=== PATIENT | male | born 1960 | race Caucasian/White ===

== ENCOUNTER 2022-12-21 11:25 | Inpatient (IN) | payer MEDICARE, MEDICAID ==
[~2022-12-21] VITALS: Ht 177.8 cm; Wt 103.9 kg
[2022-12-21] MEDS ORDERED: ZOLPIDEM TARTRATE 10 MG TABLET PO PRN (13:45)
[2022-12-21] MEDS ORDERED: LORazepam 2 MG TABLET PO PRN (13:45)
[2022-12-21 20:36] LABS: COVID AG,FIA SOURCE NASAL SWAB
[2022-12-21 22:07] LABS: BASOPHILS % (AUTO) 0.2 % (0.0-2.0); EOSINOPHILS % (AUTO) 3.2 % (1.0-6.0); HEMATOCRIT 48.5 % (41-53); HEMOGLOBIN 15.7 g/dL (13.5-17.5); LYMPHOCYTES # (AUTO) 1.5 K/uL (1.0-4.8); LYMPHOCYTES % (AUTO) 24.1 % (22.0-44.0); MEAN CORPUSCULAR HEMOGLOBIN 33.5 pg (26.0-34.0); MEAN CORPUSCULAR HGB CONC 32.4 G/dL (31.0-37.0); MEAN CORPUSCULAR VOLUME 103 fL (80-100); MONOCYTES # (AUTO) 0.8 K/uL (0.1-1.0); MONOCYTES % (AUTO) 12.6 % (2.0-9.0); NEUTROPHILS # (AUTO) 3.7 K/uL (1.8-7.7); NEUTROPHILS % (AUTO) 59.9 % (40.0-70.0); PLATELET COUNT (AUTO) 201 K/uL (150-450); RED CELL DISTRIBUTION WIDTH 14.8 % (11.5-14.5)
[2022-12-22] VITALS (7 sets, daily range): BP systolic 136–166; BP diastolic 73–99; PULSE 66–77; RESP 17–20; TEMP 97–98.3; O2SAT 96–100
[2022-12-22] MEDS ORDERED: ACETAMINOPHEN 325 MG TABLET PO PRN ×3 (06:00→15:30)
[2022-12-22] MEDS ORDERED: DEXTROSE 50%-WATER 25 GM/50 ML SYRINGE IVP PRN (06:00)
[2022-12-22] MEDS ORDERED: LORazepam 2 MG TABLET PO PRN (07:00)
[2022-12-22] MEDS: INSULIN LISPRO 100 UNITS/ML SQ PRN ×3 (07:14→21:03)
[2022-12-22 07:25] LABS: GLUCOMETER DEV NAME(LOC) 3E.C
[2022-12-22] MEDS ORDERED: LORazepam 2 MG TABLET PO SCH (09:00)
[2022-12-22 11:41] LABS: GLUCOMETER DEV NAME(LOC) 3E.C
[2022-12-22] MEDS ORDERED: MAG HYDROX/AL HYDROX/SIMETH ES 30 ML SUSPENSION UDCUP PO PRN ×2 (14:00→15:30)
[2022-12-22] MEDS ORDERED: PETROLATUM,WHITE 28 GM JELLY TP PRN ×2 (14:00→15:30)
[2022-12-22] MEDS ORDERED: DOCUSATE SODIUM 100 MG CAPSULE PO PRN ×2 (14:00→15:30)
[2022-12-22] MEDS ORDERED: IBUPROFEN 400 MG TABLET PO PRN (14:00)
[2022-12-22] MEDS ORDERED: MAGNESIUM HYDROXIDE SUSPENSION 30 ML UDCUP PO PRN ×2 (14:00→15:30)
[2022-12-22] MEDS ORDERED: NICOTINE 14 MG/24 HOUR PATCH TD PRN ×2 (14:00→15:30)
[2022-12-22] MEDS ORDERED: GuaiFENesin/D-METHORPHAN [SUGAR-FREE] 200-20MG/10 ML SYRUP UDCUP PO PRN ×2 (14:00→15:30)
[2022-12-22] MEDS ORDERED: ALBUTEROL SULFATE HFA 90 MCG/PUFF 8 GM INHALER IH PRN ×2 (14:00→15:30)
[2022-12-22] MEDS ORDERED: CloNIDine HCL 0.1 MG TABLET PO PRN ×2 (14:00→15:30)
[2022-12-22] MEDS ORDERED: ONDANSETRON HCL 4 MG TABLET PO PRN ×2 (14:00→15:30)
[2022-12-22] MEDS ORDERED: LOPERAMIDE HCL 2 MG CAPSULE PO PRN ×2 (14:00→15:30)
[2022-12-22 17:01] LABS: GLUCOMETER DEV NAME(LOC) 3E.C
[2022-12-22 21:05] LABS: GLUCOMETER DEV NAME(LOC) 3E.C
[2022-12-23 06:03] VITALS: RESP 18
[2022-12-23 06:22] LABS: GLUCOMETER DEV NAME(LOC) 3E.C
[2022-12-23] MEDS: INSULIN LISPRO 100 UNITS/ML SQ PRN (06:36)
[2022-12-23 08:52] VITALS: BP 150/89; PULSE 73; RESP 18; TEMP 97.2; O2SAT 98
[2022-12-23 11:27] LABS: GLUCOMETER DEV NAME(LOC) 3E.C
[2022-12-23 12:16] VITALS: TEMP 97
[2022-12-23] MEDS: AmLODIPine BESYLATE 5 MG TABLET PO SCH (15:57)
[2022-12-23 16:37] VITALS: BP 174/86; PULSE 64; RESP 18; TEMP 97.6; O2SAT 97
[2022-12-23 21:00] VITALS: BP 157/95; PULSE 69; RESP 18; TEMP 97.3
[2022-12-24] VITALS: TEMP 97.7
[2022-12-24 04:06] VITALS: RESP 18
[2022-12-24] MEDS ORDERED: LORazepam 1 MG TABLET PO PRN (07:00)
[2022-12-24] MEDS ORDERED: LORazepam 1 MG TABLET PO SCH (09:00)
[2022-12-24] MEDS: AmLODIPine BESYLATE 5 MG TABLET PO SCH (09:23)
[2022-12-24 09:30] VITALS: BP 128/75; PULSE 68; RESP 18; TEMP 97.8; O2SAT 98
[2022-12-24 12:03] VITALS: TEMP 98
[2022-12-24 16:54] VITALS: BP 156/91; PULSE 67; RESP 18; TEMP 97.8; O2SAT 100
[2022-12-24 21:06] VITALS: BP 152/91; PULSE 65; RESP 18; TEMP 97.5; O2SAT 97
[2022-12-25 04:47] VITALS: RESP 18
[2022-12-25] MEDS ORDERED: LORazepam 1 MG TABLET PO PRN (07:00)
[2022-12-25 08:33] VITALS: BP 140/102; RESP 19; O2SAT 96
[2022-12-25 09:00] VITALS: BP 143/71; PULSE 78; RESP 18; TEMP 97.6; O2SAT 98
[2022-12-25] MEDS: AmLODIPine BESYLATE 5 MG TABLET PO SCH (09:00)
[2022-12-25 12:14] VITALS: TEMP 98
[2022-12-25] MEDS: INSULIN LISPRO 100 UNITS/ML SQ PRN (12:14)
[2022-12-25] MEDS: SERTRALINE HCL 50 MG TABLET PO SCH (14:00)
[2022-12-25 16:10] VITALS: BP 143/79; PULSE 62; RESP 18; TEMP 98; O2SAT 98
[2022-12-25 20:41] VITALS: BP 151/86; PULSE 68; RESP 18; TEMP 98.2; O2SAT 98
[2022-12-26 00:25] VITALS: RESP 18
[2022-12-26 05:26] VITALS: RESP 18
[2022-12-26 08:00] VITALS: BP 132/80; PULSE 90; RESP 19; TEMP 97.2; O2SAT 98
[2022-12-26] MEDS: AmLODIPine BESYLATE 5 MG TABLET PO SCH (09:00)
[2022-12-26] MEDS: SERTRALINE HCL 50 MG TABLET PO SCH (09:00)
[2022-12-26 12:16] VITALS: TEMP 97.8
[2022-12-26 16:48] VITALS: BP 162/76; PULSE 74; RESP 18; TEMP 97.6; O2SAT 99
[2022-12-26] MEDS: INSULIN LISPRO 100 UNITS/ML SQ PRN (18:13)
[2022-12-26 21:43] VITALS: BP 156/100; PULSE 74; RESP 16; TEMP 97.1; O2SAT 98
[2022-12-27] MEDS: SERTRALINE HCL 50 MG TABLET PO SCH (09:00)
[2022-12-27] MEDS: AmLODIPine BESYLATE 5 MG TABLET PO SCH (09:00)
[2022-12-27 09:30] VITALS: BP 131/75; PULSE 73; RESP 17; TEMP 98; O2SAT 96
[2022-12-27 18:08] VITALS: BP 145/91; PULSE 64; RESP 18; TEMP 97.6; O2SAT 95
[2022-12-27 20:03] VITALS: BP 138/78; PULSE 86; RESP 18; TEMP 97.9; O2SAT 98
[2022-12-28 04:29] VITALS: RESP 18
[2022-12-28] MEDS: AmLODIPine BESYLATE 5 MG TABLET PO SCH (09:00)
[2022-12-28] MEDS: SERTRALINE HCL 50 MG TABLET PO SCH (09:00)
[2022-12-28 11:20] VITALS: BP 129/69; PULSE 63; TEMP 97.3; O2SAT 98
[2022-12-28 13:52] VITALS: TEMP 98.1
[2022-12-28 18:56] VITALS: BP 148/80; PULSE 70; TEMP 97.6; O2SAT 98
[2022-12-28 20:36] LABS: COVID AG,FIA SOURCE NASAL SWAB
[2022-12-28 21:06] VITALS: BP 145/74; PULSE 68; RESP 16; TEMP 97.8
[2022-12-29 00:57] VITALS: RESP 17
[2022-12-29 04:33] VITALS: RESP 17
[2022-12-29 08:27] VITALS: BP 129/79; PULSE 73; RESP 17; TEMP 97.8; O2SAT 98
[2022-12-29] MEDS: SERTRALINE HCL 50 MG TABLET PO SCH (09:00)
[2022-12-29] MEDS: AmLODIPine BESYLATE 5 MG TABLET PO SCH (09:00)
[2022-12-29 12:21] VITALS: TEMP 98
[2022-12-29 16:29] VITALS: RESP 20; TEMP 97
[2022-12-29 20:59] VITALS: BP 132/82; PULSE 86; RESP 18; TEMP 98.1; O2SAT 97
[2022-12-30 00:11] VITALS: RESP 18
[2022-12-30 04:13] VITALS: RESP 17
[2022-12-30 08:08] VITALS: BP 141/66; PULSE 74; RESP 18; TEMP 97.8; O2SAT 97
[2022-12-30] MEDS: AmLODIPine BESYLATE 5 MG TABLET PO SCH (08:16)
[2022-12-30] MEDS: SERTRALINE HCL 50 MG TABLET PO SCH (08:16)
[2022-12-30 13:09] VITALS: TEMP 98.2
[2022-12-30 16:21] VITALS: BP 144/95; PULSE 70; RESP 18; TEMP 97.7; O2SAT 98
[2022-12-30 20:54] VITALS: BP 148/83; PULSE 65; RESP 18; TEMP 97.4; O2SAT 98
[2022-12-31 00:09] VITALS: RESP 18
[2022-12-31 04:08] VITALS: RESP 18
[2022-12-31 08:11] VITALS: BP 146/73; PULSE 94; RESP 17; TEMP 98.6; O2SAT 94
[2022-12-31] MEDS: AmLODIPine BESYLATE 5 MG TABLET PO SCH (09:00)
[2022-12-31] MEDS: SERTRALINE HCL 50 MG TABLET PO SCH (09:00)
[2022-12-31 12:24] VITALS: TEMP 98.8
[2022-12-31 16:12] VITALS: BP 140/69; PULSE 98; RESP 18; TEMP 98.9; O2SAT 95
[2022-12-31 21:46] VITALS: BP 155/62; PULSE 97; RESP 17; TEMP 100.7; O2SAT 98
[2023-01-01 01:41] VITALS: RESP 18; TEMP 98.7
[2023-01-01 04:17] VITALS: RESP 18
[2023-01-01] MEDS: SERTRALINE HCL 50 MG TABLET PO SCH (09:00)
[2023-01-01] MEDS: AmLODIPine BESYLATE 5 MG TABLET PO SCH (09:00)
[2023-01-01 10:31] VITALS: BP 142/80; PULSE 88; RESP 18; TEMP 98
[2023-01-01 12:11] VITALS: TEMP 97.8
[2023-01-01 16:00] VITALS: BP 125/68; PULSE 98; RESP 18; TEMP 98.7; O2SAT 97
[2023-01-01 23:29] VITALS: BP 139/84; PULSE 87; RESP 16; TEMP 99.6; O2SAT 95
[2023-01-02 00:08] VITALS: RESP 18
[2023-01-02 04:08] VITALS: RESP 18
[2023-01-02 08:56] VITALS: BP 144/84; PULSE 73; RESP 16; TEMP 98.1; O2SAT 97
[2023-01-02] MEDS: AmLODIPine BESYLATE 5 MG TABLET PO SCH (09:00)
[2023-01-02] MEDS: SERTRALINE HCL 50 MG TABLET PO SCH (09:00)
[2023-01-02 12:52] VITALS: TEMP 97.6
[2023-01-02 16:06] VITALS: BP 132/92; PULSE 99; RESP 17; TEMP 98.7; O2SAT 97
[2023-01-02 20:15] VITALS: BP 140/79; PULSE 89; RESP 18; TEMP 97.3; O2SAT 97
[2023-01-02] MEDS: INSULIN LISPRO 100 UNITS/ML SQ PRN (21:04)
[2023-01-03 01:57] VITALS: RESP 18; TEMP 97.9
[2023-01-03 04:48] VITALS: RESP 17
[2023-01-03] MEDS: INSULIN LISPRO 100 UNITS/ML SQ PRN ×2 (06:37→21:07)
[2023-01-03 08:49] VITALS: BP 141/77; PULSE 78; RESP 17; TEMP 97.7; O2SAT 97
[2023-01-03] MEDS: AmLODIPine BESYLATE 5 MG TABLET PO SCH (09:00)
[2023-01-03] MEDS: SERTRALINE HCL 50 MG TABLET PO SCH (09:00)
[2023-01-03 12:22] VITALS: RESP 17; TEMP 97.8
[2023-01-03 16:23] VITALS: BP 160/80; PULSE 75; RESP 17; TEMP 97.6; O2SAT 96
[2023-01-03 20:09] VITALS: BP 137/79; PULSE 77; RESP 18; TEMP 97.9; O2SAT 98
[2023-01-04 00:58] VITALS: RESP 18
[2023-01-04 06:40] VITALS: RESP 18
[2023-01-04] MEDS: INSULIN LISPRO 100 UNITS/ML SQ PRN ×3 (06:44→16:24)
[2023-01-04 10:09] VITALS: RESP 18
[2023-01-04] MEDS: AmLODIPine BESYLATE 5 MG TABLET PO SCH (12:27)
[2023-01-04] MEDS: SERTRALINE HCL 50 MG TABLET PO SCH (12:41)
[2023-01-04 12:53] VITALS: RESP 17; TEMP 97.8
[2023-01-04 16:18] VITALS: RESP 18; TEMP 97.5
[2023-01-04 20:21] VITALS: BP 142/93; PULSE 76; RESP 18; TEMP 97.1; O2SAT 97
[2023-01-05 00:02] VITALS: RESP 17
[2023-01-05 04:55] VITALS: RESP 16
[2023-01-05 07:25] LABS: COVID AG,FIA SOURCE NASAL SWAB
[2023-01-05 08:00] VITALS: BP 119/57; PULSE 68; RESP 18; TEMP 97.8; O2SAT 96
[2023-01-05] MEDS: AmLODIPine BESYLATE 5 MG TABLET PO SCH (09:00)
[2023-01-05] MEDS: SERTRALINE HCL 50 MG TABLET PO SCH (09:00)
[2023-01-05 13:04] VITALS: RESP 17; TEMP 97.4
[2023-01-05 16:18] VITALS: BP 142/78; PULSE 68; RESP 18; TEMP 98.1; O2SAT 95
[2023-01-05 21:19] VITALS: BP 142/85; PULSE 80; RESP 18; TEMP 97.8; O2SAT 99
[2023-01-06 05:38] VITALS: RESP 18
[2023-01-06] MEDS: SERTRALINE HCL 50 MG TABLET PO SCH (09:00)
[2023-01-06] MEDS: AmLODIPine BESYLATE 5 MG TABLET PO SCH (09:00)
[2023-01-06 09:07] VITALS: BP 146/88; PULSE 81; RESP 18; TEMP 98.4; O2SAT 96
[2023-01-06 12:06] VITALS: TEMP 98.6
[2023-01-06 16:11] VITALS: TEMP 98.6
[2023-01-06 20:10] VITALS: BP 132/84; PULSE 83; RESP 18; TEMP 98.5; O2SAT 98
[2023-01-07 03:00] VITALS: RESP 18
[2023-01-07 04:26] VITALS: RESP 18
[2023-01-07 08:33] VITALS: BP 128/49; PULSE 81; RESP 18; TEMP 98.2; O2SAT 94
[2023-01-07] MEDS: AmLODIPine BESYLATE 5 MG TABLET PO SCH (09:00)
[2023-01-07] MEDS: SERTRALINE HCL 50 MG TABLET PO SCH ×2 (09:00→09:22)
[2023-01-07 12:20] VITALS: TEMP 98.6
[2023-01-07 16:08] VITALS: BP 128/77; PULSE 75; RESP 17; TEMP 98.3; O2SAT 97
[2023-01-07 21:23] VITALS: BP 136/70; PULSE 73; RESP 18; TEMP 98; O2SAT 94
[2023-01-08 00:42] VITALS: RESP 17; TEMP 97.5
[2023-01-08 04:37] VITALS: RESP 18
[2023-01-08 08:21] VITALS: BP 130/80; PULSE 75; RESP 16; TEMP 97.7; O2SAT 95
[2023-01-08] MEDS: AmLODIPine BESYLATE 5 MG TABLET PO SCH (09:00)
[2023-01-08] MEDS: SERTRALINE HCL 50 MG TABLET PO SCH (09:00)
[2023-01-08] MEDS: INSULIN LISPRO 100 UNITS/ML SQ PRN (12:02)
[2023-01-08 12:28] VITALS: TEMP 98.3
[2023-01-08 16:11] VITALS: BP 140/75; PULSE 71; RESP 17; TEMP 97.7; O2SAT 96
[2023-01-08 20:16] VITALS: BP 132/78; PULSE 76; RESP 18; TEMP 98.1; O2SAT 98
[2023-01-09] VITALS (7 sets, daily range): BP systolic 132–136; BP diastolic 76–83; PULSE 58–72; RESP 16–18; TEMP 98–98.3; O2SAT 95–97
[2023-01-09 07:00] LABS: GLUCOMETER DEV NAME(LOC) 3E.I 2
[2023-01-09] MEDS: SERTRALINE HCL 50 MG TABLET PO SCH (09:00)
[2023-01-09] MEDS: AmLODIPine BESYLATE 5 MG TABLET PO SCH (09:00)
[2023-01-09] MEDS: INSULIN LISPRO 100 UNITS/ML SQ PRN (12:26)
[2023-01-10 08:18] VITALS: BP 140/71; PULSE 70; RESP 18; TEMP 98.3; O2SAT 96
[2023-01-10] MEDS: SERTRALINE HCL 50 MG TABLET PO SCH (09:00)
[2023-01-10] MEDS: AmLODIPine BESYLATE 5 MG TABLET PO SCH (09:00)
[2023-01-10 12:11] VITALS: TEMP 97.6
[2023-01-10 16:40] VITALS: BP 130/80; PULSE 83; RESP 17; TEMP 97.9; O2SAT 95
[2023-01-10 20:36] VITALS: RESP 18
[2023-01-11 00:17] VITALS: RESP 17
[2023-01-11 04:08] VITALS: RESP 17
[2023-01-11 08:17] VITALS: BP 108/59; PULSE 100; RESP 18; TEMP 98; O2SAT 97
[2023-01-11] MEDS: SERTRALINE HCL 50 MG TABLET PO SCH (09:00)
[2023-01-11] MEDS: AmLODIPine BESYLATE 5 MG TABLET PO SCH (09:00)
[2023-01-11 13:03] VITALS: RESP 17; TEMP 96.4
[2023-01-11 16:12] VITALS: RESP 18
[2023-01-11 20:39] VITALS: BP 143/67; PULSE 78; RESP 17; TEMP 98; O2SAT 92
[2023-01-11] MEDS: INSULIN LISPRO 100 UNITS/ML SQ PRN (21:17)
[2023-01-12 00:06] VITALS: RESP 18
[2023-01-12 04:03] VITALS: RESP 16
[2023-01-12] MEDS: INSULIN LISPRO 100 UNITS/ML SQ PRN ×3 (07:15→17:16)
[2023-01-12 07:42] LABS: COVID AG,FIA SOURCE NASAL SWAB
[2023-01-12 08:25] VITALS: BP 147/66; PULSE 78; RESP 17; TEMP 98; O2SAT 98
[2023-01-12] MEDS: SERTRALINE HCL 50 MG TABLET PO SCH (09:00)
[2023-01-12] MEDS: AmLODIPine BESYLATE 5 MG TABLET PO SCH (09:00)
[2023-01-12 12:30] VITALS: RESP 17; TEMP 97.9
[2023-01-12 16:31] VITALS: BP 124/90; PULSE 77; RESP 18; TEMP 97.4; O2SAT 96
[2023-01-12 20:19] VITALS: BP 149/77; PULSE 81; RESP 18; TEMP 97.4; O2SAT 97
[2023-01-13 01:12] VITALS: RESP 18
[2023-01-13 04:09] VITALS: RESP 18
[2023-01-13 08:00] VITALS: TEMP 97
[2023-01-13] MEDS: AmLODIPine BESYLATE 5 MG TABLET PO SCH (09:00)
[2023-01-13] MEDS: SERTRALINE HCL 50 MG TABLET PO SCH (09:00)
[2023-01-13 12:00] VITALS: TEMP 97
[2023-01-13 16:00] VITALS: RESP 18; TEMP 98.1
[2023-01-13 20:16] VITALS: BP 126/81; PULSE 82; RESP 18; TEMP 98.1; O2SAT 98
[2023-01-14] VITALS (7 sets, daily range): BP systolic 124–129; BP diastolic 57; PULSE 74–89; RESP 16–18; TEMP 97–98; O2SAT 96–99
[2023-01-14] MEDS: AmLODIPine BESYLATE 5 MG TABLET PO SCH (09:00)
[2023-01-14] MEDS: SERTRALINE HCL 50 MG TABLET PO SCH (09:00)
[2023-01-15 01:16] VITALS: RESP 18
[2023-01-15 05:39] VITALS: RESP 18
[2023-01-15] MEDS: AmLODIPine BESYLATE 5 MG TABLET PO SCH (09:00)
[2023-01-15] MEDS: SERTRALINE HCL 50 MG TABLET PO SCH (09:00)
[2023-01-15 10:06] VITALS: BP 127/58; PULSE 83; RESP 17; TEMP 97; O2SAT 97
[2023-01-15 12:32] VITALS: TEMP 98.1
[2023-01-15 16:33] VITALS: BP 150/75; PULSE 76; RESP 18; TEMP 98; O2SAT 98
[2023-01-15 21:11] VITALS: BP 149/86; PULSE 78; RESP 16; TEMP 98.2
[2023-01-16 00:04] VITALS: RESP 18
[2023-01-16 04:02] VITALS: RESP 18
[2023-01-16 05:41] LABS: GLUCOMETER DEV NAME(LOC) 3E.C
[2023-01-16 08:00] VITALS: BP 121/68; PULSE 80; RESP 18; TEMP 97.6; O2SAT 98
[2023-01-16] MEDS: AmLODIPine BESYLATE 5 MG TABLET PO SCH (09:00)
[2023-01-16] MEDS: SERTRALINE HCL 50 MG TABLET PO SCH (09:00)
[2023-01-16 12:04] VITALS: TEMP 98.2
[2023-01-16 16:00] VITALS: BP 115/59; PULSE 66; RESP 18; TEMP 97.6; O2SAT 97
[2023-01-16 20:35] VITALS: BP 143/83; PULSE 83; RESP 18; TEMP 97.6; O2SAT 98
[2023-01-17 00:03] VITALS: RESP 18
[2023-01-17] MEDS: AmLODIPine BESYLATE 5 MG TABLET PO SCH (09:00)
[2023-01-17] MEDS: SERTRALINE HCL 50 MG TABLET PO SCH (09:00)
[2023-01-17 09:07] VITALS: BP 140/83; PULSE 86; RESP 17; TEMP 98.1; O2SAT 98
[2023-01-17 13:47] VITALS: TEMP 97.7
[2023-01-17 16:14] VITALS: BP 146/90; PULSE 78; RESP 18; TEMP 98.1; O2SAT 96
[2023-01-17] MEDS: INSULIN LISPRO 100 UNITS/ML SQ PRN (17:54)
[2023-01-17 20:48] VITALS: BP 143/86; PULSE 84; RESP 18; TEMP 98.6; O2SAT 98
[2023-01-18 00:42] VITALS: RESP 18
[2023-01-18 04:01] VITALS: RESP 18
[2023-01-18] MEDS: AmLODIPine BESYLATE 5 MG TABLET PO SCH (09:00)
[2023-01-18] MEDS: SERTRALINE HCL 50 MG TABLET PO SCH (09:00)
[2023-01-18 16:03] VITALS: BP 119/55; PULSE 79; RESP 17; TEMP 97.2; O2SAT 96
[2023-01-18] MEDS: INSULIN LISPRO 100 UNITS/ML SQ PRN (17:13)
[2023-01-18 20:29] VITALS: RESP 18; TEMP 97.9
[2023-01-19 00:15] VITALS: RESP 17
[2023-01-19 08:04] LABS: COVID AG,FIA SOURCE NASAL SWAB
[2023-01-19 08:27] VITALS: BP 135/85; PULSE 89; RESP 18; TEMP 97.6; O2SAT 98
[2023-01-19] MEDS: SERTRALINE HCL 50 MG TABLET PO SCH (08:36)
[2023-01-19] MEDS: AmLODIPine BESYLATE 5 MG TABLET PO SCH (08:36)
[2023-01-19 13:51] VITALS: TEMP 97.9
[2023-01-19 16:00] VITALS: BP 112/56; PULSE 69; RESP 16; TEMP 98.1; O2SAT 97
[2023-01-19 20:20] VITALS: BP 121/73; PULSE 78; RESP 18; TEMP 97.9; O2SAT 98
[2023-01-20 00:01] VITALS: RESP 18
[2023-01-20 04:02] VITALS: RESP 18
[2023-01-20] MEDS: AmLODIPine BESYLATE 5 MG TABLET PO SCH (08:47)
[2023-01-20] MEDS: SERTRALINE HCL 50 MG TABLET PO SCH (08:47)
[2023-01-20 08:56] VITALS: BP 148/70; PULSE 76; RESP 18; TEMP 98.1
[2023-01-20 12:54] VITALS: RESP 18; TEMP 97.8
[2023-01-20 16:14] VITALS: BP 135/84; PULSE 97; RESP 18; TEMP 98.1; O2SAT 97
[2023-01-20 20:44] VITALS: RESP 18
[2023-01-21 00:04] VITALS: RESP 18
[2023-01-21 04:11] VITALS: RESP 18
[2023-01-21 05:46] LABS: GLUCOMETER DEV NAME(LOC) 3E.C
[2023-01-21] MEDS: SERTRALINE HCL 50 MG TABLET PO SCH (09:00)
[2023-01-21] MEDS: AmLODIPine BESYLATE 5 MG TABLET PO SCH (09:00)
[2023-01-21 09:03] VITALS: RESP 18; TEMP 97.8
[2023-01-21 12:33] VITALS: RESP 18; TEMP 97.4
[2023-01-21 17:07] VITALS: BP 152/85; PULSE 85; RESP 18; TEMP 97.5; O2SAT 96
[2023-01-21 21:00] VITALS: BP 140/79; PULSE 86; RESP 17; TEMP 97.6; O2SAT 96
[2023-01-22 00:55] VITALS: RESP 18
[2023-01-22 04:14] VITALS: RESP 18
[2023-01-22 08:40] VITALS: BP 120/70; PULSE 97; RESP 18; TEMP 97.4
[2023-01-22] MEDS: SERTRALINE HCL 50 MG TABLET PO SCH (09:00)
[2023-01-22] MEDS: AmLODIPine BESYLATE 5 MG TABLET PO SCH (09:00)
[2023-01-22 12:22] VITALS: TEMP 97.1
[2023-01-22 16:29] VITALS: BP 129/59; PULSE 74; RESP 17; TEMP 98; O2SAT 98
[2023-01-22 20:25] VITALS: BP 132/72; PULSE 76; RESP 18; TEMP 98.1; O2SAT 97
[2023-01-23 00:13] VITALS: RESP 18
[2023-01-23 04:11] VITALS: RESP 18
[2023-01-23 05:31] LABS: GLUCOMETER DEV NAME(LOC) 3E.C
[2023-01-23 08:36] VITALS: BP 150/74; PULSE 60; RESP 17; TEMP 97.8; O2SAT 97
[2023-01-23] MEDS: SERTRALINE HCL 50 MG TABLET PO SCH (09:00)
[2023-01-23] MEDS: AmLODIPine BESYLATE 5 MG TABLET PO SCH (09:00)
[2023-01-23 12:05] VITALS: TEMP 97.8
[2023-01-23 16:21] VITALS: BP 124/75; PULSE 87; RESP 18; TEMP 97.8; O2SAT 98
[2023-01-23 20:30] VITALS: BP 133/82; PULSE 86; RESP 18; TEMP 97.6; O2SAT 98
[2023-01-24 02:12] VITALS: RESP 18
[2023-01-24 04:57] VITALS: RESP 17
[2023-01-24] MEDS: AmLODIPine BESYLATE 5 MG TABLET PO SCH ×2 (09:00→11:55)
[2023-01-24] MEDS: SERTRALINE HCL 50 MG TABLET PO SCH ×2 (09:00→11:54)
[2023-01-24 09:01] VITALS: BP 141/81; PULSE 88; RESP 16; TEMP 98; O2SAT 98
[2023-01-24 12:01] VITALS: TEMP 97.6
[2023-01-24 16:04] VITALS: BP 141/86; PULSE 88; RESP 17; TEMP 98.1; O2SAT 97
[2023-01-24 17:12] LABS: GLUCOMETER DEV NAME(LOC) 3E.C
[2023-01-24] MEDS: INSULIN LISPRO 100 UNITS/ML SQ PRN (17:48)
[2023-01-24 20:03] VITALS: BP 143/82; PULSE 74; RESP 17; TEMP 97.5; O2SAT 98
[2023-01-25 04:10] VITALS: RESP 18
[2023-01-25] MEDS: AmLODIPine BESYLATE 5 MG TABLET PO SCH (08:06)
[2023-01-25] MEDS: SERTRALINE HCL 50 MG TABLET PO SCH (08:06)
[2023-01-25 09:11] VITALS: BP 125/61; PULSE 83; RESP 17; TEMP 97.8; O2SAT 95
[2023-01-25 11:55] LABS: GLUCOMETER DEV NAME(LOC) 3E.I 2
[2023-01-25] MEDS: INSULIN LISPRO 100 UNITS/ML SQ PRN ×3 (11:56→21:20)
[2023-01-25 12:32] VITALS: TEMP 97.5
[2023-01-25 16:33] VITALS: BP 123/65; PULSE 66; RESP 17; TEMP 97.4; O2SAT 98
[2023-01-25 17:06] LABS: GLUCOMETER DEV NAME(LOC) 3E.C
[2023-01-25 20:14] VITALS: BP 126/72; PULSE 75; RESP 16; TEMP 97.8; O2SAT 98
[2023-01-25 20:16] LABS: GLUCOMETER DEV NAME(LOC) 3E.C
[2023-01-26 00:57] VITALS: RESP 18
[2023-01-26 05:29] VITALS: RESP 18
[2023-01-26 05:41] LABS: GLUCOMETER DEV NAME(LOC) 3E.C
[2023-01-26] MEDS: AmLODIPine BESYLATE 5 MG TABLET PO SCH (08:33)
[2023-01-26] MEDS: SERTRALINE HCL 50 MG TABLET PO SCH (08:33)
[2023-01-26 09:16] LABS: COVID AG,FIA SOURCE NASAL SWAB
[2023-01-26 10:14] VITALS: BP 127/64; PULSE 63; RESP 17; TEMP 97.3; O2SAT 95
[2023-01-26 12:00] VITALS: TEMP 97.6
[2023-01-26] MEDS: INSULIN LISPRO 100 UNITS/ML SQ PRN (12:05)
[2023-01-26 12:16] LABS: GLUCOMETER DEV NAME(LOC) 3E.I 2
[2023-01-26 16:00] VITALS: BP 134/76; PULSE 76; RESP 17; TEMP 98.1; O2SAT 95
[2023-01-26 18:06] LABS: GLUCOMETER DEV NAME(LOC) 3E.I 2
[2023-01-26 21:09] VITALS: BP 132/65; PULSE 77; RESP 18; TEMP 97.7; O2SAT 98
[2023-01-27 00:06] VITALS: RESP 18
[2023-01-27 04:06] VITALS: RESP 18
[2023-01-27 05:31] LABS: GLUCOMETER DEV NAME(LOC) 3E.C
[2023-01-27] MEDS: INSULIN LISPRO 100 UNITS/ML SQ PRN ×2 (07:12→12:14)
[2023-01-27 08:50] VITALS: BP 126/65; PULSE 70; RESP 18; TEMP 97.3; O2SAT 98
[2023-01-27] MEDS: AmLODIPine BESYLATE 5 MG TABLET PO SCH (09:08)
[2023-01-27] MEDS: SERTRALINE HCL 50 MG TABLET PO SCH (09:08)
[2023-01-27 12:00] LABS: GLUCOMETER DEV NAME(LOC) 3E.C
[2023-01-27 12:15] VITALS: BP 126/65; PULSE 70; RESP 18; TEMP 97.8; O2SAT 98
[2023-01-27 16:04] VITALS: BP 140/80; PULSE 74; RESP 16; TEMP 98.1; O2SAT 95
[2023-01-27 16:41] LABS: GLUCOMETER DEV NAME(LOC) 3E.C
[2023-01-27 20:04] VITALS: RESP 18; TEMP 97.1
[2023-01-28 00:08] VITALS: RESP 18
[2023-01-28 04:05] VITALS: RESP 18
[2023-01-28 05:56] LABS: GLUCOMETER DEV NAME(LOC) 3E.C
[2023-01-28 08:41] VITALS: BP 152/97; PULSE 85; RESP 17; TEMP 97.8; O2SAT 95
[2023-01-28] MEDS: SERTRALINE HCL 50 MG TABLET PO SCH (08:56)
[2023-01-28] MEDS: AmLODIPine BESYLATE 5 MG TABLET PO SCH (08:56)
[2023-01-28 11:21] LABS: GLUCOMETER DEV NAME(LOC) 3E.I 2
[2023-01-28 12:12] VITALS: TEMP 98
[2023-01-28 16:02] VITALS: BP 128/51; PULSE 73; RESP 18; TEMP 97.8; O2SAT 96
[2023-01-28 17:02] LABS: GLUCOMETER DEV NAME(LOC) 3E.I 2
[2023-01-28] MEDS: INSULIN LISPRO 100 UNITS/ML SQ PRN (17:09)
[2023-01-28 20:38] VITALS: BP 132/72; PULSE 89; RESP 18; TEMP 97.6
[2023-01-29 00:11] VITALS: RESP 18
[2023-01-29 04:07] VITALS: RESP 18
[2023-01-29 05:36] LABS: GLUCOMETER DEV NAME(LOC) 3E.C
[2023-01-29 08:43] VITALS: BP 109/66; PULSE 92; RESP 19; TEMP 97.4
[2023-01-29] MEDS: AmLODIPine BESYLATE 5 MG TABLET PO SCH (08:46)
[2023-01-29] MEDS: SERTRALINE HCL 50 MG TABLET PO SCH (08:47)
[2023-01-29 11:27] LABS: GLUCOMETER DEV NAME(LOC) 3E.I 2
[2023-01-29 12:00] VITALS: TEMP 97.1
[2023-01-29 16:21] LABS: GLUCOMETER DEV NAME(LOC) 3E.I 2
[2023-01-29 16:31] VITALS: BP 152/86; PULSE 64; RESP 18; TEMP 97.2; O2SAT 95
[2023-01-29 20:08] VITALS: BP 149/77; PULSE 67; RESP 18; TEMP 97.6; O2SAT 96
[2023-01-30 01:35] VITALS: RESP 18
[2023-01-30 04:12] VITALS: RESP 18
[2023-01-30 05:26] LABS: GLUCOMETER DEV NAME(LOC) 3E.C
[2023-01-30 08:27] VITALS: BP 126/68; PULSE 65; RESP 17; TEMP 98.1
[2023-01-30] MEDS: SERTRALINE HCL 50 MG TABLET PO SCH (09:30)
[2023-01-30] MEDS: AmLODIPine BESYLATE 5 MG TABLET PO SCH (09:30)
[2023-01-30 12:07] LABS: GLUCOMETER DEV NAME(LOC) 3E.I 2
[2023-01-30 12:08] VITALS: TEMP 98
[2023-01-30] MEDS: INSULIN LISPRO 100 UNITS/ML SQ PRN ×3 (12:08→21:16)
[2023-01-30 16:11] VITALS: BP 131/70; PULSE 81; RESP 17; TEMP 98.1; O2SAT 96
[2023-01-30 16:46] LABS: GLUCOMETER DEV NAME(LOC) 3E.I 2
[2023-01-30] MEDS ORDERED: HYDROCORTISONE 1% 30 GM OINTMENT TP PRN (18:30)
[2023-01-30 20:46] LABS: GLUCOMETER DEV NAME(LOC) 3E.C
[2023-01-30 20:50] VITALS: BP 142/54; PULSE 70; RESP 18; TEMP 97.7; O2SAT 98
[2023-01-31 00:05] VITALS: RESP 18
[2023-01-31 04:25] VITALS: RESP 17
[2023-01-31] MEDS: INSULIN LISPRO 100 UNITS/ML SQ PRN ×4 (06:35→20:51)
[2023-01-31 07:06] LABS: GLUCOMETER DEV NAME(LOC) 3E.C
[2023-01-31] MEDS: AmLODIPine BESYLATE 5 MG TABLET PO SCH (08:57)
[2023-01-31] MEDS: SERTRALINE HCL 50 MG TABLET PO SCH (08:57)
[2023-01-31 08:58] VITALS: BP 136/69; PULSE 70; RESP 18; TEMP 97.9; O2SAT 99
[2023-01-31 12:18] VITALS: TEMP 98
[2023-01-31 12:36] LABS: GLUCOMETER DEV NAME(LOC) 3E.C
[2023-01-31 16:51] LABS: GLUCOMETER DEV NAME(LOC) 3E.C
[2023-01-31 17:13] VITALS: BP 120/68; PULSE 73; RESP 16; TEMP 98.1; O2SAT 95
[2023-01-31 20:14] VITALS: BP 145/67; PULSE 62; RESP 18; TEMP 97.3; O2SAT 98
[2023-01-31 21:36] LABS: GLUCOMETER DEV NAME(LOC) 3E.C
[2023-02-01] MEDS: INSULIN LISPRO 100 UNITS/ML SQ PRN ×4 (06:39→21:14)
[2023-02-01 07:21] LABS: GLUCOMETER DEV NAME(LOC) 3E.C
[2023-02-01] MEDS: SERTRALINE HCL 50 MG TABLET PO SCH (08:06)
[2023-02-01] MEDS: AmLODIPine BESYLATE 5 MG TABLET PO SCH (08:06)
[2023-02-01 08:20] VITALS: BP 135/73; PULSE 62; RESP 18; TEMP 97; O2SAT 99
[2023-02-01 11:56] LABS: GLUCOMETER DEV NAME(LOC) 3E.C
[2023-02-01 12:32] VITALS: TEMP 97.2
[2023-02-01 16:07] VITALS: BP 143/69; PULSE 60; RESP 18; TEMP 97.3; O2SAT 95
[2023-02-01 16:36] LABS: GLUCOMETER DEV NAME(LOC) 3E.C
[2023-02-01 20:23] VITALS: BP 124/67; PULSE 68; RESP 17; TEMP 98; O2SAT 96
[2023-02-01 20:25] LABS: GLUCOMETER DEV NAME(LOC) 3E.C
[2023-02-02] VITALS (7 sets, daily range): BP systolic 108–142; BP diastolic 57–67; PULSE 61–86; RESP 8–18; TEMP 97.6–98; O2SAT 94–97
[2023-02-02 06:06] LABS: GLUCOMETER DEV NAME(LOC) 3E.C
[2023-02-02 06:06] LABS: COVID AG,FIA SOURCE NASAL SWAB
[2023-02-02] MEDS: INSULIN LISPRO 100 UNITS/ML SQ PRN ×2 (06:35→22:56)
[2023-02-02] MEDS: SERTRALINE HCL 50 MG TABLET PO SCH (09:06)
[2023-02-02] MEDS: AmLODIPine BESYLATE 5 MG TABLET PO SCH (09:06)
[2023-02-02 12:07] LABS: GLUCOMETER DEV NAME(LOC) 3E.C
[2023-02-02 17:26] LABS: GLUCOMETER DEV NAME(LOC) 3E.C
[2023-02-02 20:46] LABS: GLUCOMETER DEV NAME(LOC) 3E.C
[2023-02-03 01:41] VITALS: RESP 17
[2023-02-03 06:27] LABS: GLUCOMETER DEV NAME(LOC) 3E.C
[2023-02-03 06:53] VITALS: RESP 18
[2023-02-03 08:00] VITALS: BP 102/66; PULSE 66; RESP 18; TEMP 97.4; O2SAT 96
[2023-02-03] MEDS: SERTRALINE HCL 50 MG TABLET PO SCH (08:28)
[2023-02-03] MEDS: AmLODIPine BESYLATE 5 MG TABLET PO SCH (08:28)
[2023-02-03 11:16] LABS: GLUCOMETER DEV NAME(LOC) 3E.C
[2023-02-03 12:34] VITALS: RESP 18; TEMP 97.8; O2SAT 98
[2023-02-03 16:21] LABS: GLUCOMETER DEV NAME(LOC) 3E.C
[2023-02-03 16:39] VITALS: BP 137/84; PULSE 89; RESP 18; TEMP 97.2; O2SAT 97
[2023-02-03 21:10] VITALS: RESP 18
[2023-02-03 21:41] LABS: GLUCOMETER DEV NAME(LOC) 3E.C
[2023-02-03] MEDS: INSULIN LISPRO 100 UNITS/ML SQ PRN (21:45)
[2023-02-04 00:47] VITALS: RESP 17
[2023-02-04 04:48] VITALS: RESP 18
[2023-02-04 06:16] LABS: GLUCOMETER DEV NAME(LOC) 3E.C
[2023-02-04] MEDS: INSULIN LISPRO 100 UNITS/ML SQ PRN ×2 (06:42→21:27)
[2023-02-04 08:34] VITALS: BP 141/74; PULSE 65; RESP 17; TEMP 97.4; O2SAT 96
[2023-02-04] MEDS: SERTRALINE HCL 50 MG TABLET PO SCH (08:41)
[2023-02-04] MEDS: AmLODIPine BESYLATE 5 MG TABLET PO SCH (08:41)
[2023-02-04 11:01] LABS: GLUCOMETER DEV NAME(LOC) 3E.C
[2023-02-04 12:09] VITALS: TEMP 97.6
[2023-02-04 16:11] LABS: GLUCOMETER DEV NAME(LOC) 3E.C
[2023-02-04 16:23] VITALS: BP 134/76; PULSE 57; RESP 16; TEMP 97.1; O2SAT 99
[2023-02-04 20:26] LABS: GLUCOMETER DEV NAME(LOC) 3E.C
[2023-02-04 20:45] VITALS: BP 130/80; PULSE 60; RESP 18; TEMP 98; O2SAT 98
[2023-02-05 00:31] VITALS: RESP 18; RESP 19
[2023-02-05 04:52] VITALS: RESP 18
[2023-02-05 06:26] LABS: GLUCOMETER DEV NAME(LOC) 3E.C
[2023-02-05] MEDS: INSULIN LISPRO 100 UNITS/ML SQ PRN (06:40)
[2023-02-05] MEDS: AmLODIPine BESYLATE 5 MG TABLET PO SCH (08:44)
[2023-02-05] MEDS: SERTRALINE HCL 50 MG TABLET PO SCH (08:44)
[2023-02-05 08:56] VITALS: BP 133/75; PULSE 62; RESP 18; TEMP 98
[2023-02-05 11:17] LABS: GLUCOMETER DEV NAME(LOC) 3E.C
[2023-02-05 12:02] VITALS: RESP 17; TEMP 97.8
[2023-02-05 16:00] VITALS: BP 151/66; PULSE 61; RESP 18; TEMP 98; O2SAT 98
[2023-02-05 16:21] LABS: GLUCOMETER DEV NAME(LOC) 3E.C
[2023-02-05 20:51] LABS: GLUCOMETER DEV NAME(LOC) 3E.C
[2023-02-05 22:43] VITALS: BP 148/84; PULSE 66; RESP 18; TEMP 97.6; O2SAT 96
[2023-02-06 00:15] VITALS: RESP 17
[2023-02-06 06:31] LABS: GLUCOMETER DEV NAME(LOC) 3E.C
[2023-02-06] MEDS: INSULIN LISPRO 100 UNITS/ML SQ PRN (06:35)
[2023-02-06 08:00] VITALS: BP 112/65; PULSE 68; RESP 20; TEMP 97.3; O2SAT 96
[2023-02-06] MEDS: AmLODIPine BESYLATE 5 MG TABLET PO SCH (08:40)
[2023-02-06] MEDS: SERTRALINE HCL 50 MG TABLET PO SCH (08:43)
[2023-02-06 12:00] VITALS: TEMP 97.9
[2023-02-06 12:01] LABS: GLUCOMETER DEV NAME(LOC) 3E.C
[2023-02-06 16:40] VITALS: BP 148/80; PULSE 67; RESP 20; TEMP 98; O2SAT 98
[2023-02-06 20:29] VITALS: BP 146/80; PULSE 61; RESP 18; TEMP 97.6; O2SAT 98
[2023-02-07 00:05] VITALS: RESP 18
[2023-02-07 05:29] VITALS: RESP 17
[2023-02-07 08:53] VITALS: BP 120/65; PULSE 71; RESP 17; TEMP 97.6
[2023-02-07] MEDS: AmLODIPine BESYLATE 5 MG TABLET PO SCH (10:03)
[2023-02-07] MEDS: SERTRALINE HCL 50 MG TABLET PO SCH (10:03)
[2023-02-07 12:55] VITALS: RESP 18; TEMP 97.8
[2023-02-07 16:39] VITALS: BP 147/78; PULSE 65; RESP 17; TEMP 97.7
[2023-02-07 21:33] VITALS: BP 154/91; PULSE 75; RESP 18; TEMP 97.4
[2023-02-08] VITALS (7 sets, daily range): BP systolic 127–145; BP diastolic 71–81; PULSE 61–65; RESP 17–18; TEMP 97.1–97.6; O2SAT 96–98
[2023-02-08] MEDS: SERTRALINE HCL 50 MG TABLET PO SCH (08:45)
[2023-02-08] MEDS: AmLODIPine BESYLATE 5 MG TABLET PO SCH (08:45)
[2023-02-08] MEDS: IBUPROFEN 400 MG TABLET PO PRN (09:03)
[2023-02-09 00:54] VITALS: RESP 17
[2023-02-09 04:55] VITALS: RESP 17
[2023-02-09 07:55] LABS: COVID AG,FIA SOURCE NASAL SWAB
[2023-02-09] MEDS: SERTRALINE HCL 50 MG TABLET PO SCH (08:58)
[2023-02-09] MEDS: AmLODIPine BESYLATE 5 MG TABLET PO SCH (08:58)
[2023-02-09 11:30] VITALS: BP 147/71; PULSE 63; RESP 17; TEMP 97.8
[2023-02-09 14:16] VITALS: TEMP 97.3
[2023-02-09 18:33] VITALS: RESP 18; TEMP 97.5; O2SAT 98
[2023-02-09 21:01] VITALS: BP 137/66; RESP 18; TEMP 97.8; O2SAT 99
[2023-02-10 00:22] VITALS: RESP 18
[2023-02-10 04:14] VITALS: RESP 18
[2023-02-10] MEDS: AmLODIPine BESYLATE 5 MG TABLET PO SCH (09:01)
[2023-02-10] MEDS: SERTRALINE HCL 50 MG TABLET PO SCH (09:02)
[2023-02-10 09:25] VITALS: BP 119/60; PULSE 61; RESP 17; TEMP 97.8; O2SAT 96
[2023-02-10 13:29] VITALS: TEMP 97.2
[2023-02-10 16:46] VITALS: BP 131/56; PULSE 65; RESP 17; TEMP 97.4; O2SAT 97
[2023-02-10 20:49] VITALS: BP 120/61; PULSE 70; RESP 17; TEMP 97.4; O2SAT 96
[2023-02-11] VITALS: RESP 18
[2023-02-11 04:12] VITALS: RESP 18
[2023-02-11] MEDS: AmLODIPine BESYLATE 5 MG TABLET PO SCH (08:44)
[2023-02-11] MEDS: SERTRALINE HCL 50 MG TABLET PO SCH (08:44)
[2023-02-11 10:35] VITALS: BP 158/72; PULSE 63; RESP 18; TEMP 97.2
[2023-02-11 12:35] VITALS: TEMP 97.9
[2023-02-11 16:46] VITALS: BP 142/84; PULSE 66; RESP 18; TEMP 97.2
[2023-02-11 20:44] VITALS: BP 154/81; PULSE 67; RESP 18; TEMP 97.2
[2023-02-12 00:42] VITALS: RESP 18
[2023-02-12 05:46] VITALS: RESP 18
[2023-02-12] MEDS: AmLODIPine BESYLATE 5 MG TABLET PO SCH (08:23)
[2023-02-12] MEDS: SERTRALINE HCL 50 MG TABLET PO SCH (08:23)
[2023-02-12 08:33] VITALS: BP 117/67; PULSE 65; RESP 18; TEMP 98.1
[2023-02-12 15:35] VITALS: BP 120/68; PULSE 71; RESP 18; TEMP 97.2
[2023-02-12 16:26] VITALS: BP 120/68; PULSE 71; RESP 18; TEMP 97.2
[2023-02-12 20:30] VITALS: BP 153/62; PULSE 68; RESP 18; TEMP 97.8; O2SAT 96
[2023-02-13 00:01] VITALS: RESP 18
[2023-02-13 04:01] VITALS: RESP 18
[2023-02-13 08:38] VITALS: BP 108/67; PULSE 70; RESP 18; TEMP 97; O2SAT 97
[2023-02-13] MEDS: SERTRALINE HCL 50 MG TABLET PO SCH (10:38)
[2023-02-13] MEDS: AmLODIPine BESYLATE 5 MG TABLET PO SCH (10:38)
[2023-02-13 12:19] VITALS: TEMP 98
[2023-02-13 16:00] VITALS: BP 120/74; PULSE 72; RESP 18; TEMP 97.6; O2SAT 99
[2023-02-13 20:32] VITALS: BP 151/87; PULSE 69; RESP 18; TEMP 98; O2SAT 97
[2023-02-14 00:15] VITALS: RESP 17
[2023-02-14 04:01] VITALS: RESP 18
[2023-02-14] MEDS: AmLODIPine BESYLATE 5 MG TABLET PO SCH (09:41)
[2023-02-14] MEDS: SERTRALINE HCL 50 MG TABLET PO SCH (09:42)
[2023-02-14 09:52] VITALS: BP 120/62; PULSE 68; RESP 18; TEMP 98; O2SAT 97
[2023-02-14 12:19] VITALS: TEMP 98.1
[2023-02-14 17:14] VITALS: BP 125/63; PULSE 71; RESP 16; TEMP 97.6; O2SAT 98
[2023-02-14 20:49] VITALS: RESP 17
[2023-02-15 00:24] VITALS: RESP 18
[2023-02-15 05:20] VITALS: RESP 18
[2023-02-15 08:10] LABS: COVID AG,FIA SOURCE NASAL SWAB
[2023-02-15] MEDS: AmLODIPine BESYLATE 5 MG TABLET PO SCH (09:29)
[2023-02-15] MEDS: SERTRALINE HCL 50 MG TABLET PO SCH (09:29)
[2023-02-15 09:35] VITALS: BP 127/62; PULSE 68; RESP 18; TEMP 97.2; O2SAT 97
[2023-02-15 12:21] VITALS: RESP 18; TEMP 97.6
[2023-02-15 16:25] VITALS: BP 130/72; PULSE 62; RESP 16; TEMP 97.9; O2SAT 98
[2023-02-15 20:40] VITALS: BP 118/70; PULSE 67; RESP 16; TEMP 98; O2SAT 98
[2023-02-16 00:33] VITALS: RESP 17
[2023-02-16 04:09] VITALS: RESP 18
[2023-02-16 08:43] VITALS: BP 150/80; PULSE 65; RESP 18; TEMP 97.8; O2SAT 98
[2023-02-16 12:30] VITALS: TEMP 97.5
[2023-02-16] MEDS: SERTRALINE HCL 50 MG TABLET PO SCH (15:14)
[2023-02-16] MEDS: AmLODIPine BESYLATE 5 MG TABLET PO SCH (15:14)
[2023-02-16 17:19] VITALS: RESP 18; TEMP 97.6
[2023-02-16 21:03] VITALS: BP 145/77; PULSE 98; RESP 18; TEMP 98
[2023-02-17 00:05] VITALS: RESP 17
[2023-02-17 04:02] VITALS: RESP 18
[2023-02-17 08:40] VITALS: BP 145/78; PULSE 67; RESP 18; TEMP 96.8; O2SAT 96
[2023-02-17] MEDS: SERTRALINE HCL 50 MG TABLET PO SCH (09:07)
[2023-02-17] MEDS: AmLODIPine BESYLATE 5 MG TABLET PO SCH (09:07)
[2023-02-17 12:33] VITALS: TEMP 97.8
[2023-02-17 16:48] VITALS: BP 109/63; PULSE 68; RESP 18; TEMP 97.7; O2SAT 95
[2023-02-17 20:38] VITALS: BP 115/60; PULSE 64; RESP 18; TEMP 97.4; O2SAT 97
[2023-02-18 00:14] VITALS: RESP 18
[2023-02-18 04:01] VITALS: RESP 18
[2023-02-18 08:37] VITALS: BP 151/86; PULSE 66; RESP 18; TEMP 97.5; O2SAT 99
[2023-02-18] MEDS: SERTRALINE HCL 50 MG TABLET PO SCH (08:54)
[2023-02-18] MEDS: AmLODIPine BESYLATE 5 MG TABLET PO SCH (08:54)
[2023-02-18 12:44] VITALS: TEMP 98
[2023-02-18 16:20] VITALS: BP 124/68; PULSE 68; RESP 18; TEMP 97.5; O2SAT 98
[2023-02-18 21:42] VITALS: BP 144/90; PULSE 79; RESP 18; TEMP 97.6; O2SAT 98
[2023-02-19] VITALS (8 sets, daily range): BP systolic 110–121; BP diastolic 63–74; PULSE 61–71; RESP 17–19; TEMP 97.1–97.6; O2SAT 96–97
[2023-02-19] MEDS: AmLODIPine BESYLATE 5 MG TABLET PO SCH (09:31)
[2023-02-19] MEDS: SERTRALINE HCL 50 MG TABLET PO SCH (09:31)
[2023-02-19] MEDS: IBUPROFEN 400 MG TABLET PO PRN (09:38)
[2023-02-20 00:24] VITALS: RESP 17
[2023-02-20 04:05] VITALS: RESP 18
[2023-02-20] MEDS: SERTRALINE HCL 50 MG TABLET PO SCH (08:17)
[2023-02-20] MEDS: AmLODIPine BESYLATE 5 MG TABLET PO SCH (08:17)
[2023-02-20 09:10] VITALS: BP 163/82; PULSE 68; RESP 19; TEMP 97.5; O2SAT 97
[2023-02-20 13:21] VITALS: TEMP 97.3
[2023-02-20 16:10] VITALS: BP 154/75; PULSE 81; RESP 18; TEMP 97.6; O2SAT 98
[2023-02-20 20:31] VITALS: BP 149/76; PULSE 76; RESP 18; TEMP 97.1; O2SAT 98
[2023-02-21] VITALS (8 sets, daily range): BP systolic 112–150; BP diastolic 66–78; PULSE 65–78; RESP 17–18; TEMP 97–98.1; O2SAT 96–97
[2023-02-21] MEDS: IBUPROFEN 400 MG TABLET PO PRN (09:31)
[2023-02-21] MEDS: AmLODIPine BESYLATE 5 MG TABLET PO SCH (09:31)
[2023-02-21] MEDS: SERTRALINE HCL 50 MG TABLET PO SCH (09:36)
[2023-02-21] MEDS: LORazepam 1 MG TABLET PO PRN (09:39)
[2023-02-22 00:16] VITALS: RESP 18
[2023-02-22 04:25] VITALS: RESP 17
[2023-02-22 06:49] LABS: COVID AG,FIA SOURCE NASAL SWAB
[2023-02-22] MEDS: AmLODIPine BESYLATE 5 MG TABLET PO SCH (07:57)
[2023-02-22 08:01] VITALS: BP 127/62; PULSE 70; RESP 18; TEMP 97.1; O2SAT 95
[2023-02-22] MEDS: SERTRALINE HCL 50 MG TABLET PO SCH (08:03)
[2023-02-22 12:03] VITALS: TEMP 98.1
[2023-02-22 16:00] VITALS: TEMP 98
[2023-02-22 20:17] VITALS: BP 131/67; PULSE 72; RESP 18; TEMP 98.1; O2SAT 97
[2023-02-23] MEDS: SERTRALINE HCL 50 MG TABLET PO SCH (09:17)
[2023-02-23] MEDS: AmLODIPine BESYLATE 5 MG TABLET PO SCH (09:18)
[2023-02-23 09:42] VITALS: BP 125/64; PULSE 73; RESP 18; TEMP 97.6
[2023-02-23 12:18] VITALS: RESP 17; TEMP 97.8
[2023-02-24] MEDS: AmLODIPine BESYLATE 5 MG TABLET PO SCH (08:21)
[2023-02-24] MEDS: SERTRALINE HCL 50 MG TABLET PO SCH (08:21)
[2023-02-24 09:18] VITALS: BP 131/71; PULSE 69; RESP 18; TEMP 97.1; O2SAT 98
[2023-02-24] MEDS ORDERED: HYDROCHLOROTHIAZIDE 25 MG TABLET PO SCH (11:30)
[2023-02-24] MEDS ORDERED: OMEPRAZOLE 20 MG CAPSULE PO SCH (11:30)
[2023-02-24] MEDS ORDERED: MetFORMIN HCL 850 MG TABLET PO SCH (17:30)
[2023-02-24 21:18] VITALS: BP 125/68; PULSE 76; RESP 18; TEMP 98; O2SAT 95
[2023-02-25 08:50] VITALS: BP 157/80; PULSE 80; RESP 17; TEMP 97.4; O2SAT 98
[2023-02-25] MEDS: AmLODIPine BESYLATE 5 MG TABLET PO SCH (09:07)
[2023-02-25] MEDS: SERTRALINE HCL 50 MG TABLET PO SCH (09:16)
[2023-02-25] MEDS: LORazepam 1 MG TABLET PO PRN (09:16)
[2023-02-25] MEDS: HALOPERIDOL 5 MG TABLET PO PRN (09:17)
[2023-02-25 20:29] VITALS: BP 147/81; PULSE 68; RESP 18; TEMP 97.8; O2SAT 96
[2023-02-26 08:00] VITALS: BP 154/79; PULSE 75; RESP 18; TEMP 94.1; O2SAT 94
[2023-02-26 09:12] VITALS: BP 144/76; PULSE 75; RESP 18; TEMP 98.4; O2SAT 97
[2023-02-26 09:44] VITALS: BP 154/79; PULSE 75; RESP 18; TEMP 97.1
[2023-02-26] MEDS: IBUPROFEN 400 MG TABLET PO PRN (09:44)
[2023-02-26] MEDS: HALOPERIDOL 5 MG TABLET PO PRN (09:44)
[2023-02-26] MEDS: LORazepam 1 MG TABLET PO PRN (09:44)
[2023-02-26] MEDS: AmLODIPine BESYLATE 5 MG TABLET PO SCH (09:44)
[2023-02-26] MEDS: SERTRALINE HCL 50 MG TABLET PO SCH (09:44)
[2023-02-26 10:44] VITALS: BP 149/76; PULSE 78; RESP 19; TEMP 97.6
[2023-02-26 21:34] VITALS: BP 133/73; PULSE 75; RESP 18; TEMP 97.8; O2SAT 97
[2023-02-27 08:15] VITALS: BP 135/78; PULSE 70; RESP 18; TEMP 97.2; O2SAT 99
[2023-02-27] MEDS: SERTRALINE HCL 50 MG TABLET PO SCH (08:26)
[2023-02-27] MEDS: AmLODIPine BESYLATE 5 MG TABLET PO SCH (08:26)
[2023-02-27 20:12] VITALS: BP 148/77; PULSE 75; RESP 19; TEMP 97.9; O2SAT 98
[2023-02-28] MEDS: SERTRALINE HCL 50 MG TABLET PO SCH (08:35)
[2023-02-28] MEDS: AmLODIPine BESYLATE 5 MG TABLET PO SCH (08:35)
[2023-02-28 09:10] VITALS: BP 149/80; PULSE 90; RESP 18; TEMP 97.9; O2SAT 97
[2023-02-28 20:02] VITALS: BP 158/69; PULSE 64; RESP 19; TEMP 97.2
[2023-03-01 08:35] VITALS: BP 121/60; PULSE 73; RESP 18; TEMP 97.5; O2SAT 97
[2023-03-01] MEDS: IBUPROFEN 400 MG TABLET PO PRN (08:39)
[2023-03-01] MEDS: AmLODIPine BESYLATE 5 MG TABLET PO SCH (08:39)
[2023-03-01] MEDS: SERTRALINE HCL 50 MG TABLET PO SCH (08:39)
[2023-03-01 20:43] VITALS: BP 128/65; PULSE 65; RESP 18; TEMP 98; O2SAT 98
[2023-03-02 08:44] VITALS: BP 145/94; RESP 19; O2SAT 99
[2023-03-02] MEDS: AmLODIPine BESYLATE 5 MG TABLET PO SCH (08:46)
[2023-03-02] MEDS: SERTRALINE HCL 50 MG TABLET PO SCH (08:46)
[2023-03-02 21:27] VITALS: RESP 18
[2023-03-03 09:05] VITALS: BP 139/75; PULSE 73; RESP 17; TEMP 97.6
[2023-03-03] MEDS: AmLODIPine BESYLATE 5 MG TABLET PO SCH (09:26)
[2023-03-03] MEDS: SERTRALINE HCL 50 MG TABLET PO SCH (09:26)
[2023-03-03 21:44] VITALS: BP 139/63; PULSE 77; RESP 18; TEMP 98
[2023-03-04] MEDS: AmLODIPine BESYLATE 5 MG TABLET PO SCH (08:37)
[2023-03-04] MEDS: SERTRALINE HCL 50 MG TABLET PO SCH (08:37)
[2023-03-04 08:45] VITALS: BP 120/69; PULSE 67; RESP 18; TEMP 97.8; O2SAT 98
[2023-03-04 20:09] VITALS: BP 138/69; PULSE 68; RESP 18; TEMP 97.7; O2SAT 97
[2023-03-05 08:00] VITALS: BP 146/67; RESP 16; TEMP 97.7; O2SAT 98
[2023-03-05] MEDS: SERTRALINE HCL 50 MG TABLET PO SCH (09:44)
[2023-03-05] MEDS: AmLODIPine BESYLATE 5 MG TABLET PO SCH (09:44)
[2023-03-05 20:46] VITALS: BP 141/77; PULSE 80; RESP 18; TEMP 97.6; O2SAT 96
[2023-03-06 09:25] VITALS: RESP 18
[2023-03-06] MEDS: SERTRALINE HCL 50 MG TABLET PO SCH (09:25)
[2023-03-06] MEDS: AmLODIPine BESYLATE 5 MG TABLET PO SCH (09:25)
[2023-03-06 20:28] VITALS: BP 118/69; PULSE 77; RESP 18; TEMP 98; O2SAT 98
[2023-03-07 09:20] VITALS: BP 105/65; PULSE 65; RESP 18; TEMP 97.4
[2023-03-07] MEDS: AmLODIPine BESYLATE 5 MG TABLET PO SCH (09:25)
[2023-03-07] MEDS: SERTRALINE HCL 50 MG TABLET PO SCH (09:25)
[2023-03-07] MEDS: HALOPERIDOL 5 MG TABLET PO PRN (09:27)
[2023-03-07] MEDS: LORazepam 1 MG TABLET PO PRN (09:27)
[2023-03-07 21:44] VITALS: RESP 18
[2023-03-08 08:36] VITALS: BP 120/59; PULSE 69; RESP 18; TEMP 97.6; O2SAT 98
[2023-03-08 09:16] VITALS: BP 120/59; PULSE 69; RESP 18; TEMP 97.6; O2SAT 98
[2023-03-08] MEDS: IBUPROFEN 400 MG TABLET PO PRN (09:16)
[2023-03-08] MEDS: SERTRALINE HCL 50 MG TABLET PO SCH (09:16)
[2023-03-08] MEDS: HALOPERIDOL 5 MG TABLET PO PRN (09:16)
[2023-03-08] MEDS: LORazepam 1 MG TABLET PO PRN (09:16)
[2023-03-08] MEDS: AmLODIPine BESYLATE 5 MG TABLET PO SCH (09:16)
[2023-03-08 10:16] VITALS: BP 127/69; PULSE 76; RESP 17; TEMP 98
[2023-03-08 20:19] VITALS: BP 117/58; PULSE 67; RESP 18
[2023-03-09] MEDS: AmLODIPine BESYLATE 5 MG TABLET PO SCH (08:18)
[2023-03-09] MEDS: SERTRALINE HCL 50 MG TABLET PO SCH (08:18)
[2023-03-09 08:27] VITALS: BP 120/72; PULSE 81; RESP 17; TEMP 97.9
[2023-03-09 20:42] VITALS: BP 118/65; PULSE 68; RESP 18; TEMP 98.2
[2023-03-10 08:05] VITALS: BP 123/58; PULSE 73; RESP 18; TEMP 97.8; O2SAT 97
[2023-03-10] MEDS: AmLODIPine BESYLATE 5 MG TABLET PO SCH (08:17)
[2023-03-10] MEDS: SERTRALINE HCL 50 MG TABLET PO SCH (08:17)
[2023-03-10 20:16] VITALS: BP 140/81; PULSE 72; RESP 19; TEMP 97.4; O2SAT 98
[2023-03-11 09:05] VITALS: BP 107/69; PULSE 71; RESP 18; TEMP 97.6; O2SAT 97
[2023-03-11] MEDS: AmLODIPine BESYLATE 5 MG TABLET PO SCH (09:12)
[2023-03-11] MEDS: SERTRALINE HCL 50 MG TABLET PO SCH (09:12)
[2023-03-11 20:51] VITALS: BP 155/88; PULSE 66; RESP 18; TEMP 97.2; O2SAT 97
[2023-03-12 08:30] VITALS: BP 138/89; PULSE 64; RESP 18; TEMP 97.1; O2SAT 92
[2023-03-12] MEDS: AmLODIPine BESYLATE 5 MG TABLET PO SCH (09:18)
[2023-03-12] MEDS: SERTRALINE HCL 50 MG TABLET PO SCH (09:23)
[2023-03-12 20:53] VITALS: BP 129/62; PULSE 71; RESP 18; TEMP 97.4; O2SAT 96
[2023-03-13 08:50] VITALS: BP 133/63; PULSE 70; RESP 18; TEMP 97.2; O2SAT 98
[2023-03-13] MEDS: AmLODIPine BESYLATE 5 MG TABLET PO SCH (09:16)
[2023-03-13] MEDS: SERTRALINE HCL 50 MG TABLET PO SCH (09:54)
[2023-03-13 20:49] VITALS: BP 132/62; RESP 18; O2SAT 97
[2023-03-14] MEDS: SERTRALINE HCL 50 MG TABLET PO SCH (08:47)
[2023-03-14] MEDS: AmLODIPine BESYLATE 5 MG TABLET PO SCH (08:47)
[2023-03-14 09:14] VITALS: TEMP 98
[2023-03-14 20:30] VITALS: BP 135/73; PULSE 78; RESP 17; TEMP 98; O2SAT 98
[2023-03-15 08:32] VITALS: BP 132/53; PULSE 78; RESP 18; TEMP 97.1; O2SAT 96
[2023-03-15] MEDS: AmLODIPine BESYLATE 5 MG TABLET PO SCH (08:39)
[2023-03-15] MEDS: SERTRALINE HCL 50 MG TABLET PO SCH (08:40)
[2023-03-15 20:52] VITALS: BP 99/55; PULSE 74; RESP 16; TEMP 98.1; O2SAT 96
[2023-03-16] MEDS: AmLODIPine BESYLATE 5 MG TABLET PO SCH (08:53)
[2023-03-16] MEDS: SERTRALINE HCL 50 MG TABLET PO SCH (08:53)
[2023-03-16 09:00] VITALS: BP 130/67; PULSE 69; RESP 18; TEMP 97.9
[2023-03-16 21:05] VITALS: BP 110/48; PULSE 69; RESP 19; TEMP 98.3
[2023-03-17 09:20] VITALS: BP 114/61; PULSE 73; RESP 18; TEMP 97.4; O2SAT 96
[2023-03-17] MEDS: SERTRALINE HCL 50 MG TABLET PO SCH (10:31)
[2023-03-17] MEDS: AmLODIPine BESYLATE 5 MG TABLET PO SCH (10:31)
[2023-03-17 20:33] VITALS: BP 144/76; PULSE 87; RESP 17; TEMP 97.9; O2SAT 97
[2023-03-18 08:15] VITALS: BP 140/77; PULSE 70; RESP 21; TEMP 98; O2SAT 98
[2023-03-18] MEDS: SERTRALINE HCL 50 MG TABLET PO SCH (08:17)
[2023-03-18] MEDS: AmLODIPine BESYLATE 5 MG TABLET PO SCH (08:17)
[2023-03-18] MEDS: IBUPROFEN 400 MG TABLET PO PRN (08:18)
[2023-03-18 20:19] VITALS: BP 135/76; PULSE 67; RESP 18; TEMP 97.6; O2SAT 96
[2023-03-19] MEDS: SERTRALINE HCL 50 MG TABLET PO SCH (09:10)
[2023-03-19] MEDS: AmLODIPine BESYLATE 5 MG TABLET PO SCH (09:11)
[2023-03-19 09:51] VITALS: BP 102/52; PULSE 66; RESP 17; TEMP 98.1; O2SAT 94
[2023-03-19 20:36] VITALS: BP 102/77; PULSE 66; RESP 18; TEMP 98; O2SAT 96
[2023-03-20 08:35] VITALS: BP 118/65; PULSE 76; RESP 20; TEMP 98
[2023-03-20] MEDS: AmLODIPine BESYLATE 5 MG TABLET PO SCH (08:38)
[2023-03-20] MEDS: IBUPROFEN 400 MG TABLET PO PRN (08:39)
[2023-03-20] MEDS: SERTRALINE HCL 50 MG TABLET PO SCH (08:39)
[2023-03-20 09:32] VITALS: BP 104/56; PULSE 72; RESP 18; TEMP 97.8; O2SAT 97
[2023-03-20 20:16] VITALS: BP 114/53; PULSE 64; RESP 18; TEMP 98; O2SAT 99
[2023-03-21 09:00] VITALS: BP 120/70; PULSE 68; RESP 20; TEMP 98; O2SAT 96
[2023-03-21] MEDS: IBUPROFEN 400 MG TABLET PO PRN (09:01)
[2023-03-21] MEDS: AmLODIPine BESYLATE 5 MG TABLET PO SCH (09:01)
[2023-03-21] MEDS: SERTRALINE HCL 50 MG TABLET PO SCH (09:01)
[2023-03-21 20:56] VITALS: BP 119/67; PULSE 65; RESP 19; TEMP 97.8; O2SAT 98
[2023-03-22 08:47] VITALS: BP 114/73; PULSE 80; RESP 17; TEMP 96.9; O2SAT 96
[2023-03-22] MEDS: SERTRALINE HCL 50 MG TABLET PO SCH (08:50)
[2023-03-22] MEDS: IBUPROFEN 400 MG TABLET PO PRN (08:50)
[2023-03-22] MEDS: AmLODIPine BESYLATE 5 MG TABLET PO SCH (08:50)
[2023-03-22 20:31] VITALS: BP 119/71; PULSE 76; RESP 18; TEMP 97.7; O2SAT 98
[2023-03-23 08:00] VITALS: BP 105/73; PULSE 76; RESP 18; TEMP 97.5; O2SAT 98
[2023-03-23] MEDS: SERTRALINE HCL 50 MG TABLET PO SCH (08:17)
[2023-03-23] MEDS: AmLODIPine BESYLATE 5 MG TABLET PO SCH (08:17)
[2023-03-23 20:18] VITALS: BP 118/70; PULSE 80; RESP 18; TEMP 97.8; O2SAT 99
[2023-03-24 09:07] VITALS: BP 122/66; PULSE 73; RESP 18; TEMP 98.3; O2SAT 98
[2023-03-24] MEDS: SERTRALINE HCL 50 MG TABLET PO SCH (09:31)
[2023-03-24] MEDS: AmLODIPine BESYLATE 5 MG TABLET PO SCH (09:32)
[2023-03-24 20:11] VITALS: BP 133/66; PULSE 70; RESP 20; TEMP 98; O2SAT 98
[2023-03-25] MEDS: AmLODIPine BESYLATE 5 MG TABLET PO SCH (09:14)
[2023-03-25] MEDS: SERTRALINE HCL 50 MG TABLET PO SCH (09:14)
[2023-03-25 11:17] VITALS: BP 141/79; PULSE 66; RESP 18; TEMP 97; O2SAT 98
[2023-03-25 21:59] VITALS: BP 118/63; PULSE 69; RESP 18; TEMP 97.5; O2SAT 98
[2023-03-26 08:00] VITALS: BP 153/70; PULSE 60; RESP 18; TEMP 97.1; O2SAT 98
[2023-03-26] MEDS: AmLODIPine BESYLATE 5 MG TABLET PO SCH (08:53)
[2023-03-26] MEDS: SERTRALINE HCL 50 MG TABLET PO SCH (08:53)
[2023-03-26 20:30] VITALS: BP 126/75; PULSE 69; RESP 18; TEMP 97.6
[2023-03-27] MEDS: SERTRALINE HCL 50 MG TABLET PO SCH (09:09)
[2023-03-27] MEDS: AmLODIPine BESYLATE 5 MG TABLET PO SCH (09:09)
[2023-03-27 09:32] VITALS: BP 124/85; PULSE 70; RESP 17; TEMP 97.6; O2SAT 97
[2023-03-27 20:38] VITALS: BP 125/70; PULSE 72; RESP 18; TEMP 98.1; O2SAT 98
[2023-03-28] MEDS: SERTRALINE HCL 50 MG TABLET PO SCH (08:48)
[2023-03-28] MEDS: AmLODIPine BESYLATE 5 MG TABLET PO SCH (08:48)
[2023-03-28 09:37] VITALS: BP 127/68; PULSE 83; RESP 18; TEMP 97.8; O2SAT 98
[2023-03-28 20:37] VITALS: BP 125/70; PULSE 69; RESP 18; TEMP 97.5; O2SAT 98
[2023-03-29 09:09] VITALS: BP 103/62; PULSE 70; RESP 18; TEMP 97.3; O2SAT 97
[2023-03-29] MEDS: SERTRALINE HCL 50 MG TABLET PO SCH (10:16)
[2023-03-29] MEDS: AmLODIPine BESYLATE 5 MG TABLET PO SCH (10:16)
[2023-03-29 23:34] VITALS: BP 100/72; PULSE 71; RESP 18; TEMP 97.5; O2SAT 98
[2023-03-30] MEDS: SERTRALINE HCL 50 MG TABLET PO SCH (08:17)
[2023-03-30] MEDS: AmLODIPine BESYLATE 5 MG TABLET PO SCH (08:17)
[2023-03-30 09:13] VITALS: BP 122/69; PULSE 77; RESP 17; TEMP 97.7; O2SAT 96
[2023-03-30 20:51] VITALS: BP 118/64; PULSE 71; RESP 18; TEMP 98.1; O2SAT 99
[2023-03-31] MEDS: SERTRALINE HCL 50 MG TABLET PO SCH (08:38)
[2023-03-31] MEDS: AmLODIPine BESYLATE 5 MG TABLET PO SCH (08:39)
[2023-03-31 09:40] VITALS: BP 104/51; PULSE 71; RESP 18; TEMP 97.4; O2SAT 97
[2023-03-31 20:22] VITALS: BP 143/70; PULSE 70; RESP 18; TEMP 97.9; O2SAT 97
[2023-04-01] MEDS: AmLODIPine BESYLATE 5 MG TABLET PO SCH (09:16)
[2023-04-01] MEDS: SERTRALINE HCL 50 MG TABLET PO SCH (09:16)
[2023-04-01 09:32] VITALS: BP 125/67; PULSE 69; RESP 18; TEMP 98; O2SAT 98
[2023-04-01 20:54] VITALS: BP 141/74; PULSE 103; RESP 18; TEMP 97.1; O2SAT 98
[2023-04-02 08:38] VITALS: BP 122/64; PULSE 61; RESP 17; TEMP 97.8; O2SAT 98
[2023-04-02] MEDS: SERTRALINE HCL 50 MG TABLET PO SCH (08:38)
[2023-04-02] MEDS: AmLODIPine BESYLATE 5 MG TABLET PO SCH (08:38)
[2023-04-02 20:16] VITALS: BP 128/67; PULSE 71; RESP 18; TEMP 97.9; O2SAT 98
[2023-04-03 09:22] VITALS: BP 111/63; PULSE 70; RESP 18; TEMP 97.4; O2SAT 97
[2023-04-03] MEDS: AmLODIPine BESYLATE 5 MG TABLET PO SCH (09:42)
[2023-04-03] MEDS: SERTRALINE HCL 50 MG TABLET PO SCH (09:42)
[2023-04-03 21:25] VITALS: BP 155/76; PULSE 62; RESP 17; TEMP 97.5; O2SAT 98
[2023-04-04 08:54] VITALS: BP 145/78; PULSE 66; RESP 18; TEMP 96.2; O2SAT 100
[2023-04-04] MEDS: AmLODIPine BESYLATE 5 MG TABLET PO SCH (10:38)
[2023-04-04] MEDS: SERTRALINE HCL 50 MG TABLET PO SCH (10:38)
[2023-04-04 20:18] VITALS: BP 124/64; PULSE 63; RESP 18; TEMP 97.7; O2SAT 95
[2023-04-05 08:49] VITALS: BP 105/59; PULSE 63; RESP 18; TEMP 97.9; O2SAT 97
[2023-04-05] MEDS: SERTRALINE HCL 50 MG TABLET PO SCH (09:51)
[2023-04-05] MEDS: AmLODIPine BESYLATE 5 MG TABLET PO SCH (09:51)
[2023-04-05 22:03] VITALS: BP 99/59; PULSE 68; RESP 17; TEMP 97.8; O2SAT 94
[2023-04-06 00:43] VITALS: BP 126/63; PULSE 70; RESP 18; TEMP 98.6; O2SAT 94
[2023-04-06 08:30] VITALS: BP 113/64; PULSE 77; RESP 19; TEMP 98; O2SAT 97
[2023-04-06] MEDS: SERTRALINE HCL 50 MG TABLET PO SCH (08:40)
[2023-04-06] MEDS: AmLODIPine BESYLATE 5 MG TABLET PO SCH (08:41)
[2023-04-06 20:30] VITALS: BP 121/65; PULSE 76; RESP 18; TEMP 97.7; O2SAT 99
[2023-04-07] MEDS: SERTRALINE HCL 50 MG TABLET PO SCH (09:11)
[2023-04-07] MEDS: AmLODIPine BESYLATE 5 MG TABLET PO SCH (09:11)
[2023-04-07 09:28] VITALS: BP 131/65; PULSE 60; RESP 18; TEMP 97.3; O2SAT 95
[2023-04-07 22:11] VITALS: BP 123/54; PULSE 69; RESP 17; TEMP 98.3; O2SAT 97
[2023-04-07 23:05] VITALS: BP 139/72; PULSE 89; RESP 18; TEMP 98.2; O2SAT 99
[2023-04-07] MEDS: IBUPROFEN 400 MG TABLET PO PRN (23:09)
[2023-04-08 09:27] VITALS: BP 116/60; PULSE 90; RESP 18; TEMP 97.5; O2SAT 100
[2023-04-08] MEDS: AmLODIPine BESYLATE 5 MG TABLET PO SCH (09:57)
[2023-04-08] MEDS: SERTRALINE HCL 50 MG TABLET PO SCH (09:57)
[2023-04-08] MEDS: IBUPROFEN 400 MG TABLET PO PRN (21:29)
[2023-04-08 21:34] VITALS: BP 132/69; PULSE 66; RESP 16; TEMP 97.8; O2SAT 96
[2023-04-09] MEDS: SERTRALINE HCL 50 MG TABLET PO SCH (08:35)
[2023-04-09] MEDS: AmLODIPine BESYLATE 5 MG TABLET PO SCH (08:35)
[2023-04-09 09:29] VITALS: BP 131/86; PULSE 61; RESP 18; TEMP 97.7; O2SAT 96
[2023-04-09 20:25] VITALS: BP 131/78; PULSE 62; RESP 18; TEMP 97.2; O2SAT 98
[2023-04-10] MEDS: SERTRALINE HCL 50 MG TABLET PO SCH (08:32)
[2023-04-10] MEDS: AmLODIPine BESYLATE 5 MG TABLET PO SCH (08:32)
[2023-04-10 09:28] VITALS: BP 128/62; PULSE 62; RESP 18; TEMP 97.7; O2SAT 99
[2023-04-10 20:19] VITALS: BP 160/80; PULSE 61; RESP 19; TEMP 97.4; O2SAT 98
[2023-04-11] MEDS: AmLODIPine BESYLATE 5 MG TABLET PO SCH (08:37)
[2023-04-11] MEDS: SERTRALINE HCL 50 MG TABLET PO SCH (08:37)
[2023-04-11 16:47] VITALS: BP 116/74; PULSE 76; RESP 18; TEMP 96.8; O2SAT 97
[2023-04-11 20:49] VITALS: BP 133/62; PULSE 64; RESP 18; TEMP 97.2; O2SAT 96
[2023-04-12] MEDS: AmLODIPine BESYLATE 5 MG TABLET PO SCH (09:05)
[2023-04-12] MEDS: SERTRALINE HCL 50 MG TABLET PO SCH (09:05)
[2023-04-12 09:13] VITALS: BP 130/86; PULSE 60; RESP 17; TEMP 97.6
[2023-04-12 20:27] VITALS: BP 117/61; PULSE 61; RESP 18; TEMP 98.3; O2SAT 95
[2023-04-13 08:02] VITALS: BP 113/62; PULSE 64; RESP 18; TEMP 98; O2SAT 98
[2023-04-13] MEDS: AmLODIPine BESYLATE 5 MG TABLET PO SCH (08:25)
[2023-04-13] MEDS: SERTRALINE HCL 50 MG TABLET PO SCH (08:25)
[2023-04-13 22:17] VITALS: BP 119/62; PULSE 76; RESP 18; TEMP 98.1
[2023-04-14] MEDS: AmLODIPine BESYLATE 5 MG TABLET PO SCH ×2 (08:31→09:00)
[2023-04-14] MEDS: SERTRALINE HCL 50 MG TABLET PO SCH (08:31)
[2023-04-14 09:56] VITALS: BP 101/58; PULSE 70; RESP 18; TEMP 97.6; O2SAT 98
[2023-04-14 21:46] VITALS: BP 141/67; PULSE 66; RESP 17; TEMP 97.5; O2SAT 98
[2023-04-15] MEDS: SERTRALINE HCL 50 MG TABLET PO SCH (08:59)
[2023-04-15] MEDS: AmLODIPine BESYLATE 5 MG TABLET PO SCH (08:59)
[2023-04-15 09:11] VITALS: BP 125/73; PULSE 89; RESP 18; TEMP 98; O2SAT 96
[2023-04-15] MEDS ORDERED: SERT-439 PO (13:19)
[2023-04-15] MEDS ORDERED: AMLO-257 PO (14:14)
== END 2023-04-15 15:35 | DRG 885 ==
LOC: EMS 11:32 → 3EX 12-22 03:17 → 3EI 12-22 03:55
PROVIDERS: ADMIT Psychiatry & Neurology Child & Adolescent Psychiatry; ATTEND Psychiatry & Neurology Child & Adolescent Psychiatry
PROC: 0HBRXZZ Excision of Toe Nail, External Approach (ICD-10-PCS; principal; 2023-01-22)
PROC: 0HBRXZZ Excision of Toe Nail, External Approach (ICD-10-PCS; 2023-01-22)
DX: F33.2 Major depressive disorder, recurrent severe without psychotic features (principal); U07.1 COVID-19; N18.9 Chronic kidney disease, unspecified; E11.9 Type 2 diabetes mellitus without complications; F10.10 Alcohol abuse, uncomplicated; I12.9 Hypertensive chronic kidney disease with stage 1 through stage 4 chronic kidney disease, or unspecified chronic kidney disease; L60.0 Ingrowing nail; E11.22 Type 2 diabetes mellitus with diabetic chronic kidney disease; F17.210 Nicotine dependence, cigarettes, uncomplicated; Z88.0 Allergy status to penicillin; Z59.00 Homelessness unspecified
CPT/HCPCS: 82962; 85025; 87081; 93970; 97162; 97166; 97167; 97530; 97535; 99285

== ENCOUNTER 2024-12-14 22:56 | Emergency (ER) | payer MEDICARE, OTHER ==
[~2024-12-14] VITALS: Ht 177.8 cm; Wt 130.0 kg
[~2024-12-14 22:56] MED LIST: AMLO-257 PO; SERT-439 PO
[2024-12-14 23:04] VITALS: BP 156/105; PULSE 94; RESP 17; TEMP 97.8; O2SAT 96
[2024-12-14] MEDS: HEPARIN SODIUM,PORCINE 5,000 UNITS/ML VIAL SQ SCH (23:44)
[2024-12-14] MEDS ORDERED: ACETAMINOPHEN 325 MG TABLET PO PRN (23:45)
[2024-12-14] MEDS ORDERED: ALBUTEROL SULFATE 2.5 MG/0.5 ML NEB SOLUTION NEB PRN (23:45)
[2024-12-14] MEDS ORDERED: DEXTROSE 50%-WATER 25 GM/50 ML SYRINGE IVP PRN (23:45)
[2024-12-14] MEDS ORDERED: ONDANSETRON HCL 4 MG/2 ML VIAL IVP PRN (23:45)
[2024-12-14] MEDS ORDERED: INSULIN LISPRO 100 UNITS/ML SQ PRN (23:45)
[2024-12-15] MEDS ORDERED: FAMOTIDINE 20 MG TABLET PO SCH (09:00)
[2024-12-15] MEDS ORDERED: DOCUSATE SODIUM 100 MG CAPSULE PO SCH (09:00)
== END 2024-12-15 01:08 | disposition left against medical advice (07) ==
LOC: EMS 22:56
DX: J98.01 Acute bronchospasm (principal); R06.02 Shortness of breath; E11.9 Type 2 diabetes mellitus without complications; I10 Essential (primary) hypertension; Z88.0 Allergy status to penicillin; Z79.899 Other long term (current) drug therapy
CPT/HCPCS: 71045; 93005; 99283

== ENCOUNTER 2025-01-18 15:58 | Emergency (ER) | payer MEDICARE, OTHER ==
[~2025-01-18] VITALS: Ht 177.8 cm; Wt 97.7 kg
[2025-01-18 16:58] VITALS: BP 131/65; PULSE 92; RESP 17; TEMP 98.3; O2SAT 98
== END 2025-01-18 21:12 | disposition left against medical advice (07) ==
LOC: EMS 15:58
DX: E11.51 Type 2 diabetes mellitus with diabetic peripheral angiopathy without gangrene (principal); I10 Essential (primary) hypertension; Z88.0 Allergy status to penicillin; Z79.899 Other long term (current) drug therapy
CPT/HCPCS: 99283; Z7502